=== PATIENT | female | born 1995 | race Caucasian/White ===

== ENCOUNTER → 2016-09-29 | Day surgery (SDC) | payer OTHER ==
[~2016-09-29] MED LIST: ADDERALL; ANTIBIOTIC PO; BACTRIM DS TABL1 TA1 PO; BENADRYL25 M3 PO; CIPRO PO; HYDROCODON-ACE1 EAC7 PO; KEFLEX PO; KEFLEX500 M2 PO; LEVAQUIN PO; METROGEL60 GM TP; NO MEDICATIONS; NORCO1 TAB 10/3 PO; PAXIL; PHENERGAN25 M1 PO; PROPRANOLOL; PYRIDIUM PO; ROBAXIN 750750 M1 PO; SEROQUEL400 MG PO; TYLENOL #3 PO; VYVANSE40 MG PO; WELLBUTRIN PO; ZOFRAN ODT4 MG PO
--- NOTE | ~2016-09-29 | CR181 ---
[facility] A Service of [facility] RADIOLOGY TEXT RESULTS PATIENT: MICKY FLOWER LOCATION: [facility] : [birth year] UNIT #: [id number] AGE: [address]: Tobias Kang MD SEX: F ORDER DR: [id number] [facility] [address] [place], [place] [address] [id number] O MR#: [id number] Acc #: [id number] NAME: MICKY FLOWER. : 1995 SEX: F STUDY DATE/TIME: 09/29/2016 14:05 UNIT: [facility] ROOM: STUDY DESCRIPTION: CR Lumbar Spine 2 or 3 Views Attending Physician: Tobias Kang M.D. Ordering Physician: Tobias Kang M.D. Primary Care Physician: Hugo Suarez M.D. MEDICAL IMAGING REPORT This report is preliminary unless electronic signature is present EXAM Lumbar spine 2 or 3 view HISTORY Spinal cord stimulator placement intraoperative. FLUORO TIME 9 seconds IMAGES SUBMITTED Two COMMENT Two fluoroscopic images submitted for retrospective review of the sacrum. There is a stimulator lead projected over the sacrum on each of the views. There is also a structure projected over the left sacral ala which could be a sponge and please correlate further clinically. This could be outside the patient but please exclude placement inside the patient. IMPRESSION Two fluoroscopic images of the sacrum submitted for retrospective review show a lead projected over the sacral and ischial views. Please see Dr. Kang's note. On the frontal view, there is apparently a sponge projected over the left sacral ala. Please correlate clinically to exclude retained foreign body. STAT * RESULT Dictated by... Richa Gonzales M.D. THIS IS AN ELECTRONICALLY VERIFIED REPORT [facility] A Service of [facility] RADIOLOGY TEXT RESULTS PATIENT: MICKY FLOWER LOCATION: [facility] : [birth year] UNIT #: [id number] AGE: [address]: Tobias Kang MD SEX: F ORDER DR: Richa Gonzales M.D. at 09/30/2016 9:42 AM ANI/silvio TD: 09/30/2016 07:05 JOB #: [id number] MEDICAL IMAGING REPORT Page 1 of 1 COPY
--- NOTE | ~2016-09-29 | OR ---
Unit #: [id number] #: [id number] Patient: MICKY FLOWER N [id number] [address] [place], [place] [address] [id number] O MR#: [id number] NAME: MICKY FLOWER ROOM: Date of Procedure: 09/29/2016 Admission Date: 09/29/2016 Surgeon: Tobias Kang M.D. : 1995 Attending Physician: Tobias Kang M.D. Primary Care Physician: Hugo Suarez M.D. OPERATIVE REPORT PREOPERATIVE DIAGNOSIS Urinary retention, nonobstructive. POSTOPERATIVE DIAGNOSIS Urinary retention, nonobstructive. PROCEDURE PERFORMED Right stage I stage II InterStim placement. ANESTHESIA General. DESCRIPTION OF PROCEDURE After informed consent, she was taken to the operating room, placed on general anesthetic, positioned prone. Her low back and buttock area were prepped and draped in usual sterile fashion. Using fluoroscopy and bony landmarks, the S3 foramen was located on the right. Using stimulation, she had plantar flexion of the great toe and bellowing of the buttocks. The lead was placed transcutaneously using the curved stylet. There was positive motor response on all 4 leads. Fluoroscopy was performed and the films were preserved in the PAX system. An incision was made over the right buttock using sharp and blunt dissection. The lead was tunneled over to the incision. Copious amount of antibiotic irrigation was used to irrigate out the pocket site. This was done on multiple and repeated occasions to decrease the chance of infection. The generator was connected to the lead. The wound was closed in multiple layers using Vicryl and Monocryl suture. The small tunneling incision was also closed in multiple layers. Dermabond was placed across the incision. 0.5% Marcaine with lidocaine was used for local anesthetic. All counts were correct at the end of the procedure. The patient will be discharged home on 2 different antibiotics. She had prior wound infection. I stressed to the patient the importance of being compliant. Previously, she had not returned to see me as recommended or in a timely fashion. She agrees and states she will be more compliant this time. Dictated by... Tobias Kang M.D. TLB/modl Unit #: [id number] #: [id number] Patient: MICKY FLOWER TD: 09/29/2016 20:43 JOB #: [id number] OPERATIVE REPORT Page 1 of 1 X Tobias Kang MD PROCEDURE OPERATIVE NOTE
== END | disposition home or self-care (01) ==
LOC: CSUR 11:14
DX: R33.9 Retention of urine, unspecified (principal); F17.210 Nicotine dependence, cigarettes, uncomplicated; Z88.8 Allergy status to other drugs, medicaments and biological substances; Z98.890 Other specified postprocedural states; Z79.899 Other long term (current) drug therapy
CPT/HCPCS: 72100; 76000; 84703; C1767; C1778; C1787; J0330; J1580; J2250; J2405; J3010; J3370